=== PATIENT | male | born 1985 | race African-American/Black ===

== ENCOUNTER 2017-09-06 17:11 | Emergency (ER) | payer BC, OTHER ==
[2017-09-06 17:36] VITALS: BP 143/70; PULSE 70; RESP 20; TEMP 98.7
[2017-09-06] MEDS ORDERED: HYDROcodone/APAP 5-325MG 1 EACH TAB PO STA (17:51)
--- NOTE | 2017-09-06 17:55 | ED ---
ENT HPI - General Chief complaint: Dental/Oral Stated complaint: DENTAL PAIN POST OP Time Seen by Provider: 09/06/17 17:37 Source: patient, RN notes reviewed Mode of arrival: ambulatory Limitations: no limitations - History of Present Illness Initial comments: 31-year-old male present emergency Department chief complaint of right upper dental pain. Patient states he had 2 teeth extracted at the dental clinic on Thursday. He states she's been having pain or sense alleviated with oral medications [id number]. Patient states that he's had no fever no chills. Denies any drainage. He states he just cannot tolerate the pain anymore. Patient states his face was swollen states that has reduced. Patient denies any sore throat, difficulty swallowing. - Related Data Home Medications Medication Instructions Recorded Confirmed Acetaminophen Tab [Tylenol Tab] 1,137.5 mg PO Q4H PRN 09/06/17 09/06/17 Ibuprofen [Motrin Ib] 600 mg PO Q6H PRN 09/06/17 09/06/17 Previous Rx's Medication Instructions Recorded Hydrocodone/Acetaminophen [Dalhart 1 tab PO Q6HR PRN #15 tab 09/06/17 5-325] Penicillin V Potassium [Pen Vee K] 500 mg PO QID #40 tablet 09/06/17 Allergies Allergy/AdvReac Type Severity Reaction Status Date / Time No Known Allergies Allergy Verified 09/06/17 17:41 Review of Systems ROS Statement: Those systems with pertinent positive or pertinent negative responses have been documented in the HPI. ROS Other: All systems not noted in ROS Statement are negative. Past Medical History Past Medical History: No Reported History History of Any Multi-Drug Resistant Organisms: None Reported Past Surgical History: No Surgical Hx Reported Past Psychological History: ADD/ADHD Smoking Status: Current some day smoker Past Alcohol Use History: Occasional Past Drug Use History: None Reported General Exam Limitations: no limitations General appearance: alert, in no apparent distress Head exam: Present: atraumatic, normocephalic, normal inspection Eye exam: Present: normal appearance, PERRL, EOMI. Absent: scleral icterus, conjunctival injection, periorbital swelling ENT exam: Present: mucous membranes moist. Absent: normal oropharynx (Noted area of tooth extraction 2 right upper, there is one area of black-colored tissue with no obvious infection or definite dry socket.) Neck exam: Present: normal inspection, full ROM. Absent: tenderness, meningismus, lymphadenopathy Respiratory exam: Present: normal lung sounds bilaterally. Absent: respiratory distress, wheezes, rales, rhonchi, stridor Cardiovascular Exam: Present: regular rate, normal rhythm, normal heart sounds. Absent: systolic murmur, diastolic murmur, rubs, gallop, clicks Course Vital Signs 09/06/17 17:34 Temperature 98.7 F Pulse Rate 70 Respiratory 20 Rate Blood Pressure 143/70 O2 Sat by Pulse 99 Oximetry Medical Decision Making - Medical Decision Making 31-year-old male present emergency department for dental pain. Patient's pain will likely related to teething extraction possible infection of dry socket. Patient was placed on antibiotics he is advised to follow-up for recheck for dry socket and return for any worsening symptoms. Disposition Clinical Impression: Oral pain, S/P tooth extraction Disposition: HOME SELF-CARE Condition: Stable Instructions: Toothache (ED), Dry Socket (ED) Additional Instructions: Please return to the Emergency Department if symptoms worsen or any other concerns. Prescriptions: Hydrocodone/Acetaminophen [Dalhart 5-325] 1 tab PO Q6HR PRN #15 tab PRN Reason: Pain Penicillin V Potassium [Pen Vee K] 500 mg PO QID #40 tablet Referrals: Mc Márquez MD [Primary Care Provider] - 1-2 days Time of Disposition: 17:54
== END 2017-09-06 18:10 | disposition home or self-care (01) ==
LOC: EC 17:11
DX: K08.89 Other specified disorders of teeth and supporting structures (principal); F17.200 Nicotine dependence, unspecified, uncomplicated; Z98.818 Other dental procedure status
CPT/HCPCS: 99281